=== PATIENT | female | born 1970 | race Caucasian/White ===

== ENCOUNTER 2018-01-13 07:55 | Day surgery (SDC) | payer BC, OTHER ==
[~2018-01-13 07:55] MED LIST: Lidocaine 1%/Sod Bicarbonate in NS 8.4% 1 ML Syringe IDERM PRN; Sodium Chloride 0.9% 10 ML Syringe FLUSH PRN
[2018-01-13] MEDS ORDERED: Rocuronium 50 MG/5 ML Vial ONE (08:09)
[2018-01-13] MEDS ORDERED: Ondansetron 4 MG/2 ML SDV ONE (08:09)
[2018-01-13] MEDS ORDERED: fentaNYL 250 MCG/5 ML SDV ONE (08:10)
[2018-01-13] MEDS ORDERED: Propofol 200 MG/20 ML SDV ONE (08:10)
[2018-01-13] MEDS ORDERED: Lidocaine 1% 4 ML ONE (08:10)
[2018-01-13] MEDS ORDERED: Midazolam 1 MG/ML 2 ML SDV ONE (08:10)
[2018-01-13] MEDS ORDERED: ceFAZolin 1 GM Vial ONE (08:17)
[2018-01-13] MEDS ORDERED: Lidocaine 1% with EPINEPHrine 1:100,000 20 ML MDV ONE (08:19)
[2018-01-13] MEDS: Lactated Ringers 1,000 ML IV SCH ×2 (08:22→10:02)
--- NOTE | 2018-01-13 08:23 | PCM.PREANE ---
Preanesthetic Assessment - Procedure Proposed Procedure: Total vaginal hysterectomy - Anesthesia/Transfusion/Family Hx Anesthesia History: Prior Anesthesia Without Reaction Family History of Anesthesia Reaction: No Transfusion History: No Prior Transfusion(s) - Review of Systems General: No Symptoms Pulmonary: No Symptoms Cardiovascular: No Symptoms Gastrointestinal: No Symptoms Neurological: No Symptoms Other: Reports: None - Physical Assessment NPO Status Date: 01/12/18 NPO Status Time: 00:00 Pulse: 97 O2 Sat by Pulse Oximetry: 93 Respiratory Rate: 16 Blood Pressure: 122/67 Temperature: 36.7 C Height: 1.7 m Weight: 72.2 kg ASA Class: 2 Mental Status: Alert & Oriented x3 Airway Class: Mallampati = 2 Dentition: Reports: Normal Dentition Thyro-Mental Finger Breadths: 3 Mouth Opening Finger Breadths: 3 ROM/Head Extension: Full Lungs: Clear to Auscultation, Normal Respiratory Effort Cardiovascular: Regular Rate, Regular Rhythm, No Murmurs - Lab Values: Laboratory Last Values Urine HCG, Qual Negative (NEGATIVE) 01/13/18 08:02 - Allergies Allergies/Adverse Reactions: Allergies Allergy/AdvReac Type Severity Reaction Status Date / Time No Known Allergies Allergy Verified 01/12/18 14:25 - Blood Blood Available: Yes Product(s) Available: PRBC - Anesthesia Plan Pre-Op Medication Ordered: None - Acknowledgements Anesthesia Type Planned: General Anesthesia Pt an Appropriate Candidate for the Planned Anesthesia: Yes Alternatives and Risks of Anesthesia Discussed w Pt/Guardian: Yes Pt/Guardian Understands and Agrees with Anesthesia Plan: Yes PreAnesthesia Questionnaire CUST[employer]ER [employer]UT[employer] REPRESENTATIVE History: Reports: Other (See Below) Other OB/BYN History: irregular menses, menorrhagia Psychiatric History: Reports: Anxiety Hematologic History: Reports: Anemia - Past Surgical History GI Surgical History: Reports: Cholecystectomy Female Surgical History: Reports: Breast Biopsy, Tubal Ligation - SUBSTANCE USE Smoking Status *Q: Never Smoker Tobacco Use Within Last Twelve Months: No Second Hand Smoke Exposure: No Days Per Week of Alcohol Use: 0 Number of Drinks Per Day: 0 Total Drinks Per Week: 0 Recreational Drug Use History: No - HOME MEDS Home Medications: Home Meds Cholecalciferol (Vitamin D3) [Vitamin D3] 50,000 unit PO WEEKLY 01/12/18 [ History] Ferrous Sulfate [Iron] 325 mg PO DAILY 01/12/18 [History] medroxyPROGESTERone [Provera] 1 tab PO ASDIRECTED 01/12/18 [History] - CURRENT (IN HOUSE) MEDS Current Meds: Current Medications Lactated Ringer's (Ringers, Lactated) 1,000 mls @ 125 mls/hr IV ASDIRECTED [facility] Stop: 01/14/18 23:00 Lidocaine/Sodium Bicarbonate (Buffered Lidocaine 1% In Ns 8.4%) 0.25 ml IDERM ONETIME PRN PRN Reason: Prior to IV Start Stop: 01/13/18 18:00 Sodium Chloride (Saline Flush) 10 ml FLUSH ASDIRECTED PRN PRN Reason: Keep Vein Open Stop: 01/13/18 18:00 Discontinued Medications Cefazolin Sodium (Ancef) Confirm Administered Dose 2 gm .ROUTE .STK-MED ONE Stop: 01/13/18 08:18 Fentanyl (Sublimaze) Confirm Administered Dose 250 mcg .ROUTE .STK-MED ONE Stop: 01/13/18 08:11 Lidocaine HCl (Xylocaine-Mpf 1%) Confirm Administered Dose 4 mls @ as directed .ROUTE .STK-MED ONE Stop: 01/13/18 08:11 Midazolam HCl (Versed 1 Mg/Ml) Confirm Administered Dose 2 mg .ROUTE .STK-MED ONE Stop: 01/13/18 08:11 Ondansetron HCl (Zofran) Confirm Administered Dose 4 mg .ROUTE .STK-MED ONE Stop: 01/13/18 08:10 Propofol (Diprivan 20 Ml) Confirm Administered Dose 200 mg .ROUTE .STK-MED ONE Stop: 01/13/18 08:11 Rocuronium [place] (Zemuron) Confirm Administered Dose 50 mg .ROUTE .STK-MED ONE Stop: 01/13/18 08:10
[2018-01-13] MEDS: Sodium Chloride 0.9% 50 ML SDV ONE ×2 (09:05→09:06)
[2018-01-13] MEDS ORDERED: diphenhydrAMINE 50 MG/ML SDV ONE (09:19)
[2018-01-13] MEDS ORDERED: Ketorolac 30 MG/ML SDV ONE (09:19)
[2018-01-13] MEDS ORDERED: Dexamethasone 4 MG/ML 5 ML MDV ONE (09:19)
[2018-01-13] MEDS ORDERED: HYDROmorphone 1 MG/ML Syringe ONE (09:23)
[2018-01-13] MEDS ORDERED: Lactated Ringers 1,000 ML ONE (09:25)
[2018-01-13] MEDS ORDERED: fentaNYL 100 MCG/2 ML SDV IVPUSH PRN (09:55)
[2018-01-13] MEDS ORDERED: HYDROmorphone 0.5 MG/0.5 ML Syringe IVPUSH PRN (09:55)
--- NOTE | 2018-01-13 09:59 | PCM.POSTAN ---
POST ANESTHESIA ASSESSMENT - MENTAL STATUS Mental Status: Somnolent - VITAL SIGNS Pulse Rate: 107 SaO2: 94 Resp Rate: 12 Blood Pressure: 124/75 Temperature: 36.7 C - RESPIRATORY Respiratory Status: Respiratory Rate WNL, Airway Patent, O2 Saturation Stable, Supplemental Oxygen - CARDIOVASCULAR CV Status: Pulse Rate WNL, Blood Pressure Stable - GASTROINTESTINAL GI Status: No Symptoms - PAIN Pain Score: 0 - POST OP HYDRATION Hydration Status: Adequate & Stable - OBSERVATIONS Free Text/Narrative:: no anesthesia complications noted
--- NOTE | 2018-01-13 10:02 | PCM.OPNOTE ---
- General Post-Op/Procedure Note Date of Surgery/Procedure: 01/13/18 Operative Procedure(s): Total vaginal hysterectomy bilateral salpingo- oophorectomy 68345 Pre Op Diagnosis: Heavy menses, irregular menses, abnormal uterine bleeding perimenopausal Post-Op Diagnosis: Same Anesthesia Technique: General ET Tube Primary Surgeon: Erickson Owens Secondary Surgeon: Juan Carlos Agarwal Anesthesia Provider: Kristian Meza Manager Corporate: Marcell Puckett (OLVIN) Reason Manager Corporate Was Necessary: Difficult procedure, retraction, decrease comorbidity and co-mortality Role of Manager Corporate: Difficult procedure, retraction, decrease comorbidity and co-mortality Fluid Replacement, Intraop: 1,700 EBL in mLs: 100 Drain/Tube Comments:: None Complications: None Condition: Good Free Text/Narrative:: Patient was placed under general anesthesia with endotracheal intubation in the low dorsal lithotomy position and prepared and draped in a sterile fashion. SCDs in place and functioning prior surgery. Ancef 2 g given intravenously prior surgery. Uterus was grasped with double-tooth tenaculum and 20 mL of 0.25 % lidocaine with epinephrine injected in multiple confluent areas around the cervix. The uterus was circumscribed and utilizing moist opened up 4 x 4 tissue pushed cephalad posterior colpotomy was performed without difficulty. Utilizing the LigaSure the uterosacral cardinal ligament bundle on the left side was crossclamped activated and incised same procedure carried out in the right side. Proceeding in a pedicle fashion cephalad crossclamping activating incising until the triple pedicle was approximated. The fundus of the uterus and the drum posteriorly and crossclamping the triple pedicle with Yang clamps and incising the uterus was removed. Grasping the left tube and ovary and crossclamping the infundibulopelvic ligament with the LigaSure activating and incising hemostasis was normal. Same procedure carried out on the right side. The uterus cervix tubes and ovaries removed without difficulty. Examination of the areas of the infundibulopelvic ligament showed no bleeding. The posterior cuff was closed with a running locking suture of 0 Monocryl. Hemostasis was again evaluated and found no bleeding. The infundibulopelvic ligament area showed no bleeding bilaterally. Sponge, needle, sharp, packs and 4 x 4's were counted and correct 2. The anterior cuff was approximated to the posterior cuff utilizing 0 Monocryl running locking suture. Patient was transported postanesthesia care unit in satisfactory condition. No blood transfusions were required. I talked with the patient's and all questions answered voiced satisfaction. Prescription for Percocet 5/325 dispense 15 sig 1 by mouth every 6 hours when necessary pain.
[2018-01-13] MEDS ORDERED: Acetaminophen/oxyCODONE 325-5 MG Tab PO PRN (10:44)
== END 2018-01-13 13:14 | disposition home or self-care (01) ==
LOC: JD.SDS 07:55
PROVIDERS: ATTEND Obstetrics & Gynecology
DX: N72 Inflammatory disease of cervix uteri (principal); D25.9 Leiomyoma of uterus, unspecified; N80.0 Endometriosis of uterus; N83.11 Corpus luteum cyst of right ovary; N83.12 Corpus luteum cyst of left ovary
CPT/HCPCS: 36415; 51798; 58262; 81025; 86850; 86900; 86901; A9270; J0690; J1100; J1170; J1200; J1885; J2250; J2405; J3010; J7120; J2704